=== PATIENT | male | born 1960 | race African-American/Black ===

== ENCOUNTER 2021-04-24 05:06 | Day surgery (SDC) | payer OTHER ==
[2021-04-23 08:56] VITALS: BMI 32.1
[2021-04-24 12:52] VITALS: BP 119/71; PULSE 62; TEMP 98
== END 2021-04-24 12:45 | disposition home or self-care (01) ==
LOC: JASU-ENDO 05:06
PROVIDERS: ATTEND Internal Medicine Gastroenterology
PROC: 0DJD8ZZ Inspection of Lower Intestinal Tract, Via Natural or Artificial Opening Endoscopic (ICD-10-PCS; principal; 2021-04-24 11:00)
DX: Z12.11 Encounter for screening for malignant neoplasm of colon (principal)

== ENCOUNTER 2021-09-02 10:03 | Emergency (ER) | payer OTHER ==
[2021-09-02 10:23] VITALS: BP 117/72; PULSE 86; TEMP 97.9; BMI 30.8
[2021-09-02] MEDS ORDERED: KETOROLAC TROMETHAMINE 60 MG/2 ML VIAL IM ONE (10:39)
[2021-09-02] MEDS ORDERED: KETOROLAC TROMETHAMINE 60 MG/2 ML VIAL ONE (10:44)
[2021-09-02] MEDS ORDERED: predniSONE 20 MG TABLET (UD) PO ONE (10:45)
[2021-09-02] MEDS ORDERED: predniSONE 20 MG TABLET (UD) ONE (10:48)
== END 2021-09-02 11:38 | disposition home or self-care (01) ==
LOC: JERFT 10:03 → JER 10:03 → JERFT 11:38
PROC: 3E0233Z Introduction of Anti-inflammatory into Muscle, Percutaneous Approach (ICD-10-PCS; principal; 2021-09-02)
DX: M10.9 Gout, unspecified (principal)
CPT/HCPCS: 99284-25